=== PATIENT | female | born 1955 ===

== ENCOUNTER 2022-01-29 10:21 | Day surgery (SDC) | payer MEDICARE, OTHER ==
[2022-01-28 15:18] VITALS: BMI 25.8
[2022-01-29] MEDS ORDERED: Oxymetazoline HCl 0.05% (30 ML BOT) ONE (11:45)
[2022-01-29 12:00] LABS: Hemoglobin 14.7 g/dL (12.0-16.0)
[2022-01-29] MEDS ORDERED: EPINEPHrine 1 MG/ML AMP ONE (12:03)
[2022-01-29] MEDS ORDERED: Lidocaine 1% (PF) 30 ML VIAL ONE (12:03)
[2022-01-29 12:18] LABS: Anion Gap 12 mmol/L (10-20); BUN (Urea Nitrogen) 11 mg/dL (9.8-20.1); Calc. Creatinine Clearance 88 mL/min (70-130); Calcium 9.5 mg/dL (7.8-10.44); Carbon Dioxide 26 mmol/L (23-31); Chloride 106 mmol/L (98-107); Estimated GFR 91; Glucose 92 mg/dL (80-115); Potassium 3.7 mmol/L (3.5-5.1); Sodium 140 mmol/L (136-145)
[2022-01-29] MEDS ORDERED: FENTANYL 50 MCG/ML 1 ML VIAL ONE ×3 (12:36→13:38)
[2022-01-29] MEDS ORDERED: NEOSTIGMINE 3 MG/3 ML SYR 3 MG/3 ML SYRINGE ONE (12:45)
[2022-01-29] MEDS ORDERED: GLYCOPYRROLATE/PF 0.2 MG/ML VIAL ONE (12:45)
[2022-01-29] MEDS ORDERED: Ondansetron PF 4 MG/2 ML Vial ONE (12:45)
[2022-01-29] MEDS ORDERED: PROPOFOL 200 MG/20 ML VIAL ONE (12:45)
[2022-01-29] MEDS ORDERED: Rocuronium Bromide 10 MG/ML (10ML VIAL) ONE (12:45)
[2022-01-29] MEDS ORDERED: Dexamethasone 20 MG/5 ML VIAL ONE (12:45)
[2022-01-29] MEDS ORDERED: Morphine 4 MG/ML VIAL ONE (14:01)
== END 2022-01-29 16:13 | disposition home or self-care (01) ==
LOC: SDC 10:21
PROVIDERS: ATTEND Otolaryngology Plastic Surgery within the Head & Neck
PROC: 09SM0ZZ Reposition Nasal Septum, Open Approach (ICD-10-PCS; principal; 2022-01-29)
PROC: 095L0ZZ Destruction of Nasal Turbinate, Open Approach (ICD-10-PCS; 2022-01-29)
PROC: 8E09XBZ Computer Assisted Procedure of Head and Neck Region (ICD-10-PCS; 2022-01-29)
PROC: 099S8ZZ Drainage of Right Frontal Sinus, Via Natural or Artificial Opening Endoscopic (ICD-10-PCS; 2022-01-29)
PROC: 09BT8ZZ Excision of Left Frontal Sinus, Via Natural or Artificial Opening Endoscopic (ICD-10-PCS; 2022-01-29)
PROC: 099W8ZZ Drainage of Right Sphenoid Sinus, Via Natural or Artificial Opening Endoscopic (ICD-10-PCS; 2022-01-29)
PROC: 099X8ZZ Drainage of Left Sphenoid Sinus, Via Natural or Artificial Opening Endoscopic (ICD-10-PCS; 2022-01-29)
PROC: 099Q8ZZ Drainage of Right Maxillary Sinus, Via Natural or Artificial Opening Endoscopic (ICD-10-PCS; 2022-01-29)
PROC: 099R8ZZ Drainage of Left Maxillary Sinus, Via Natural or Artificial Opening Endoscopic (ICD-10-PCS; 2022-01-29)
PROC: 09TU8ZZ Resection of Right Ethmoid Sinus, Via Natural or Artificial Opening Endoscopic (ICD-10-PCS; 2022-01-29)
PROC: 09TV8ZZ Resection of Left Ethmoid Sinus, Via Natural or Artificial Opening Endoscopic (ICD-10-PCS; 2022-01-29)
DX: J32.4 Chronic pansinusitis (principal); J33.8 Other polyp of sinus; J34.2 Deviated nasal septum; J34.3 Hypertrophy of nasal turbinates; J34.89 Other specified disorders of nose and nasal sinuses; I10 Essential (primary) hypertension; G47.33 Obstructive sleep apnea (adult) (pediatric); D64.9 Anemia, unspecified; E03.9 Hypothyroidism, unspecified; Z79.890 Hormone replacement therapy; Z79.899 Other long term (current) drug therapy
CPT/HCPCS: 30520; 30802; 31256; 31257; 31276; 61782; 80048; 85014; 85018; 93005; J3010; 36415; 88304; 93010; J0171; J2001; J2270